=== PATIENT | female | born 1950 | race Caucasian/White ===

== ENCOUNTER 2017-11-02 07:47 | Outpatient (CLI) | payer MEDICARE ==
[2017-11-02] VITALS (19 sets, daily range): BP systolic 129–168; BP diastolic 47–93; PULSE 65–84; TEMP 97.8
[~2017-11-02] VITALS: Ht 165.1 cm; Wt 81.5 kg
[~2017-11-02 07:47] MED LIST: ASPIRIN E.C. 8181 MG PO; B COMPLEX #11 TAB PO; CALCIUM 600/VIT1 CAP PO; MAGNESIUM250 M1 PO; MULTI VITAMINS1 TAB PO; PROBIOTIC-MAJOR PO; VITAMIN C500 MG PO; VITAMIN D32000 I1 PO; VITAMIN E 400 U4001 PO; ZOCOR 10MG10 MG PO
== END 2017-11-02 12:33 | disposition home or self-care (01) ==
LOC: COL.RAD 07:47
DX: C50.919 Malignant neoplasm of unspecified site of unspecified female breast (principal); J44.9 Chronic obstructive pulmonary disease, unspecified; R91.8 Other nonspecific abnormal finding of lung field
CPT/HCPCS: J3010